=== PATIENT | female | born 1990 | race Caucasian/White ===

== ENCOUNTER → 2021-02-15 | Outpatient (CLI) | payer MEDICAID ==
[2021-02-15 09:50] LABS: MICROSCOPIC NOT IND
[2021-02-15 09:50] LABS: BASOPHILS % (AUTO) 1 % (0-1); EOSINOPHILS % (AUTO) 2 % (1-7); LYMPHOCYTES % (AUTO) 42 % (22-44); MEAN CORPUSCULAR HEMOGLOBIN 28.9 pg (27.0-34.8); MEAN CORPUSCULAR HGB CONC 33.8 g/dL (32.4-35.8); MEAN PLATELET VOLUME 7.6 fL (7.4-10.4); MONOCYTES % (AUTO) 5 % (2-9); NEUTROPHILS % (AUTO) 51 % (42-75); PLATELET COUNT 271 x10^3/uL (130-400); RED CELL DISTRIBUTION WIDTH 12.7 % (9.6-15.2)
[2021-02-15 10:01] LABS: ALANINE AMINOTRANSFERASE 25 U/L (12-78); ALBUMIN 3.8 g/dL (3.4-5.0); ANION GAP 4 mmol/L (5-15); CALCIUM 8.8 mg/dL (8.5-10.1); CHLORIDE 108 mmol/L (98-107)
[2021-02-15 10:05] LABS: ALKALINE PHOSPHATASE 74 U/L (45-117); BILIRUBIN,TOTAL 0.6 mg/dL (0.2-1.0); CREATININE 0.56 mg/dL (0.55-1.02); TOTAL PROTEIN 7.6 g/dL (6.4-8.2)
== END | disposition home or self-care (01) ==
LOC: STAR 08:51
PROVIDERS: ATTEND Obstetrics & Gynecology
DX: Z01.818 Encounter for other preprocedural examination (principal); N83.8 Other noninflammatory disorders of ovary, fallopian tube and broad ligament; Z20.822 Contact with and (suspected) exposure to COVID-19
CPT/HCPCS: 36415; 80053; 81003; 84702; 85025; 93005; U0003; U0005

== ENCOUNTER 2021-02-21 08:54 | Inpatient (IN) | payer MEDICAID, OTHER ==
[~2021-02-21] VITALS: Ht 170.2 cm; Wt 74.7 kg
[2021-02-21] MEDS ORDERED: CHLORHEXIDINE 15 ML UDC ONE (10:40)
[2021-02-21] MEDS ORDERED: LIDOCAINE-MPF 1%, 2ML ONE (10:40)
[2021-02-21 10:44] LABS: HCG UR SG 1.022 (1.003-1.030)
[2021-02-21] MEDS ORDERED: LACTATED RINGERS 1,000 ML IV SCH (11:00)
[2021-02-21] MEDS ORDERED: CHLORHEXIDINE 15 ML UDC PO ONE (11:00)
[2021-02-21] MEDS ORDERED: LIDOCAINE-MPF 1%, 2ML INFIL ONE (11:00)
[2021-02-21] MEDS ORDERED: HYDROmorphone 1 MG/ML, 1ML INJ ONE ×2 (11:18→13:47)
[2021-02-21] MEDS ORDERED: FENTANYL PF 100 MCG/2ML ONE ×2 (11:19→13:47)
[2021-02-21] MEDS ORDERED: MIDAZOLAM 1 MG/ML, 2ML ONE (11:19)
[2021-02-21] MEDS ORDERED: NEOSTIGMINE 1 MG/ML, 10ML ONE (12:05)
[2021-02-21] MEDS ORDERED: KETOROLAC 30 MG/1 ML ONE (12:05)
[2021-02-21] MEDS ORDERED: DEXAMETHASONE 4 MG/ML, 1ML ONE (12:05)
[2021-02-21] MEDS ORDERED: ONDANSETRON 2MG/ML, 2ML ONE (12:05)
[2021-02-21] MEDS ORDERED: CEFAZOLIN 1,000 MG ONE (12:05)
[2021-02-21] MEDS ORDERED: PROPOFOL 10 MG/ML, 20ML ONE (12:05)
[2021-02-21] MEDS ORDERED: GLYCOPYRROLATE 0.2MG/1ML, 5ML ONE (12:05)
[2021-02-21] MEDS ORDERED: ROCURONIUM 10 MG/ML,10ML ONE (12:05)
[2021-02-21] MEDS ORDERED: EPHEDRINE 50 MG/ML, 1ML IVPush PRN (13:00)
[2021-02-21] MEDS ORDERED: METOCLOPRAMIDE 5 MG/ML, 2ML IVPush PRN (13:00)
[2021-02-21] MEDS ORDERED: hydrALAzine 20 MG/ML, 1ML IV PRN (13:00)
[2021-02-21] MEDS ORDERED: DIAZEPAM 5 MG/ML, 2ML IVPush PRN (13:00)
[2021-02-21] MEDS ORDERED: DIPHENHYDRAMINE 50 MG/ML, 1ML IVPush PRN (13:00)
[2021-02-21] MEDS ORDERED: ACETAMINOPHEN 325 MG TABLET PO PRN (13:00)
[2021-02-21] MEDS ORDERED: ONDANSETRON 2MG/ML, 2ML IVPush PRN (13:00)
[2021-02-21] MEDS ORDERED: MEPERIDINE/PF 25MG/0.5ML IVPush PRN (13:00)
[2021-02-21] MEDS ORDERED: LABETALOL 5MG/ML, 20ML IV PRN (13:00)
[2021-02-21] MEDS ORDERED: OXYcodone 5 MG/5 ML ORAL.SOL UDC PO PRN (13:00)
[2021-02-21] MEDS ORDERED: HYDROmorphone 1 MG/ML, 1ML INJ IVPush PRN (13:00)
[2021-02-21] MEDS ORDERED: KETOROLAC 30 MG/1 ML IVPush PRN (13:00)
[2021-02-21] MEDS ORDERED: METOPROLOL 1 MG/ML, 5ML IV PRN (13:00)
[2021-02-21] MEDS ORDERED: PROMETHAZINE 25 MG/ML, 1ML IVPush PRN (13:00)
[2021-02-21] MEDS ORDERED: HALOPERIDOL 5 MG/ML IV PRN (13:00)
[2021-02-21] MEDS ORDERED: HEPARIN 1,000 UNITS/ML, 10ML ONE (13:22)
[2021-02-21] MEDS ORDERED: OXYcodone 5 MG/5 ML ORAL.SOL UDC ONE (13:47)
[2021-02-21] MEDS: FENTANYL PF 100 MCG/2ML IV PRN ×2 (13:48→13:55)
[2021-02-21] MEDS: D5%-LACTATED RINGERS 1,000 ML IV SCH ×2 (15:23→22:21)
[2021-02-21] MEDS: ONDANSETRON 2MG/ML, 2ML IVPush PRN ×2 (16:26→22:16)
[2021-02-21] MEDS: KETOROLAC 30 MG/1 ML IV PRN ×2 (16:26→22:16)
[2021-02-21] MEDS: SIMETHICONE 80 MG CHEW TAB PO SCH ×2 (16:26→20:29)
[2021-02-21 18:24] VITALS: BP 92/59
[2021-02-21] MEDS ORDERED: SODIUM CHLORIDE 0.9%, 500ML IVBOLUS ONE (19:00)
[2021-02-21 19:15] LABS: BASOPHILS % (AUTO) 0 % (0-1); EOSINOPHILS % (AUTO) 0 % (1-7); LYMPHOCYTES % (AUTO) 4 % (22-44); MEAN CORPUSCULAR HEMOGLOBIN 29.1 pg (27.0-34.8); MEAN CORPUSCULAR HGB CONC 33.8 g/dL (32.4-35.8); MEAN PLATELET VOLUME 7.7 fL (7.4-10.4); MONOCYTES % (AUTO) 2 % (2-9); NEUTROPHILS % (AUTO) 94 % (42-75); PLATELET COUNT 252 x10^3/uL (130-400); RED BLOOD COUNT 3.34 x10^6/uL (3.82-5.3); RED CELL DISTRIBUTION WIDTH 12.1 % (9.6-15.2)
[2021-02-21] MEDS: SODIUM CHLORIDE FLUSH 10ML SYR IVF SCH (20:34)
[2021-02-22 00:13] VITALS: BP 87/58
[2021-02-22 03:01] LABS: BASOPHILS % (AUTO) 0 % (0-1); EOSINOPHILS % (AUTO) 0 % (1-7); LYMPHOCYTES % (AUTO) 5 % (22-44); MEAN CORPUSCULAR HEMOGLOBIN 29.7 pg (27.0-34.8); MEAN CORPUSCULAR HGB CONC 34.5 g/dL (32.4-35.8); MEAN PLATELET VOLUME 7.3 fL (7.4-10.4); MONOCYTES % (AUTO) 5 % (2-9); NEUTROPHILS % (AUTO) 90 % (42-75); PLATELET COUNT 260 x10^3/uL (130-400); RED BLOOD COUNT 2.75 x10^6/uL (3.82-5.3); RED CELL DISTRIBUTION WIDTH 12.4 % (9.6-15.2)
[2021-02-22] MEDS: OXYcodone/APAP 5/325MG TABLET PO PRN ×2 (04:15→11:10)
[2021-02-22] MEDS: KETOROLAC 30 MG/1 ML IV PRN ×3 (05:20→20:22)
[2021-02-22 05:23] VITALS: BP 106/67
[2021-02-22] MEDS: D5%-LACTATED RINGERS 1,000 ML IV SCH ×2 (06:09→14:30)
[2021-02-22 06:28] VITALS: BP 96/57
[2021-02-22] MEDS ORDERED: OMNIPAQUE 350 MG/ML, 100ML BOTTLE ONE (07:44)
[2021-02-22] MEDS: SIMETHICONE 80 MG CHEW TAB PO SCH ×3 (09:31→20:21)
[2021-02-22] MEDS: SODIUM CHLORIDE FLUSH 10ML SYR IVF SCH ×2 (09:31→20:22)
[2021-02-22] MEDS: ONDANSETRON 2MG/ML, 2ML IVPush PRN ×2 (12:35→20:22)
[2021-02-22 13:08] VITALS: BP 109/68
[2021-02-22 13:25] LABS: INTERNATIONAL NORMALIZED RATIO 1.12 (0.93-1.1)
[2021-02-22 18:46] VITALS: BP 112/73
[2021-02-23] VITALS (7 sets, daily range): BP systolic 102–109; BP diastolic 64–72
[2021-02-23] MEDS: ONDANSETRON 2MG/ML, 2ML IVPush PRN ×2 (03:16→07:28)
[2021-02-23] MEDS: KETOROLAC 30 MG/1 ML IV PRN (03:16)
[2021-02-23] MEDS: SIMETHICONE 80 MG CHEW TAB PO SCH ×3 (07:26→20:58)
[2021-02-23] MEDS ORDERED: DIPHENHYDRAMINE 25 MG CAPSULE PO ONE (08:00)
[2021-02-23] MEDS ORDERED: ACETAMINOPHEN 325 MG TABLET PO ONE (08:00)
[2021-02-23] MEDS: SODIUM CHLORIDE FLUSH 10ML SYR IVF SCH ×2 (09:00→20:58)
[2021-02-23] MEDS: IBUPROFEN 600 MG TABLET PO PRN (16:46)
[2021-02-24 00:49] VITALS: BP 105/69
[2021-02-24 07:00] VITALS: BP 116/76
[2021-02-24] MEDS: IBUPROFEN 600 MG TABLET PO PRN (08:16)
[2021-02-24] MEDS: SODIUM CHLORIDE FLUSH 10ML SYR IVF SCH (08:16)
[2021-02-24] MEDS: SIMETHICONE 80 MG CHEW TAB PO SCH (08:16)
== END 2021-02-24 10:20 | disposition home or self-care (01) | DRG 743 ==
LOC: ORIP 09:54 → 4NW 14:28
PROVIDERS: ADMIT Obstetrics & Gynecology; ATTEND Obstetrics & Gynecology
PROC: 0UB50ZZ Excision of Right Fallopian Tube, Open Approach (ICD-10-PCS; 2021-02-22)
PROC: 0UB00ZZ Excision of Right Ovary, Open Approach (ICD-10-PCS; 2021-02-22)
PROC: 30233N1 Transfusion of Nonautologous Red Blood Cells into Peripheral Vein, Percutaneous Approach (ICD-10-PCS; principal; 2021-02-23)
DX: N83.291 Other ovarian cyst, right side (principal); R19.00 Intra-abdominal and pelvic swelling, mass and lump, unspecified site
CPT/HCPCS: 36415; J3490; J7121; 74177; 81025; 85014; 85018; 85025; 85610; 86850; 86900; 86923; 88112; 88305; 88307; 88331; G0378; J0690; J1100; J1170; J1644; J1885; J2250; J2405; J2704; J2710; J3010; Q9967; J7040; J7120; P9016; Q0163